=== PATIENT | female | born 1940 | race Caucasian/White ===

== ENCOUNTER 2021-06-21 01:45 | Inpatient (IN) | payer MEDICARE, MEDICAID ==
[2021-06-21 02:56] LABS: #Eosinphils 0.1 thou/uL (0.0-0.7); #Lymphocytes 0.8 thou/uL (1.20-3.40); #Monocytes 0.4 thou/uL (0.11-0.59); #Neutrophils 15.3 thou/uL (1.40-6.50); %Eosinophils 0.5 % (0.0-10.0); %Monocytes 2.1 % (0.0-10.0); %Neutrophils 92.4 % (42.0-75.0); Hemoglobin 17.2 g/dL (12.0-16.0); Mean Corpuscular HGB CONC 34.1 g/dL (32.0-36.0); Mean Corpuscular Hemoglobin 32.4 pg (27.0-31.0); Mean Corpuscular Volume 95.1 fL (78.0-98.0); Mean Platelet Volume 7.4 fL (7.4-10.4); Platelet Count 352 thou/uL (130-400); RBC Distribution Width 12.4 % (11.5-14.5); Red Blood Cell (RBC) Count 5.29 mill/uL (4.20-5.40); White Blood Cell (WBC) Count 16.5 thou/uL (4.8-10.8)
[2021-06-21 03:26] LABS: ALT (SGPT) 10 U/L (8-55); AST (SGOT) 17 U/L (5-34); Acetaminophen Less than 6.0 mcg/mL (10.0-30.0); Albumin 4.3 g/dL (3.4-4.8); Alcohol Less than 10 mg/dL (Less than 10); Alkaline Phosphatase 87 U/L (40-110); Anion Gap 17 mmol/L (10-20); BUN (Urea Nitrogen) 18 mg/dL (9.8-20.1); Bilirubin, Total 1.3 mg/dL (0.2-1.2); Calc. Creatinine Clearance 0 mL/min (70-130); Calcium 10.4 mg/dL (7.8-10.44); Carbon Dioxide 18 mmol/L (23-31); Chloride 104 mmol/L (98-107); Globulin 3.7 g/dL (2.4-3.5); Glucose 217 mg/dL (83-110); Magnesium 1.7 mg/dL (1.6-2.6); Potassium 3.8 mmol/L (3.5-5.1); Salicylate Less than 8.0 mg/dL (15.0-30.0); Sodium 135 mmol/L (136-145)
[2021-06-21 03:44] LABS: Bilirubin Negative (Negative); Blood, Urine 1+ (Negative); Clarity Turbid (Clear); Glucose, Urine (Dipstick) 100 mg/dL (Negative); Ketone, Urine Trace mg/dL (Negative); Leukocyte 25 Leu/uL (Negative); Nitrite Negative (Negative); Protein, Urine (Dipstick) 300 mg/dL (Neg-Trace); RBC/HPF 0-3 HPF (0-3); Specific Gravity, Urine 1.018 (1.002-1.036); Squamous Epithelial 0-3 HPF (0-3); Urobilinogen Normal mg/dL (Less than 2); WBC/HPF 21-50 HPF (0-3)
[2021-06-21 03:48] LABS: Amphetamine Not Detected (NotDetected); Barbiturates Screen Not Detected (NotDetected); Benzodiazepine Screen Not Detected (NotDetected); Cocaine Metabolite Screen Not Detected (NotDetected); Methadone Not Detected (NotDetected); Methamphetamine Not Detected (NotDetected); Opiate Screen Not Detected (NotDetected); Oxycodone Screen Not Detected (NotDetected); Phencyclidine (PCP) Not Detected (NotDetected); THC/Cannabinoid Screen Detected (NotDetected); Tricyclic Screen Not Detected (NotDetected)
[2021-06-21 03:53] LABS: Bacteria/HPF 4+ HPF (None Seen)
[2021-06-21] MEDS ORDERED: Magnesium 2 GM/50 ML BAG (IN WATER) ONE (05:08)
[2021-06-21] MEDS ORDERED: cefTRIAXone\\ROCEPHIN 2 GM VIAL ONE (05:16)
[2021-06-21] MEDS ORDERED: Enoxaparin Sodium 60 MG/0.6 ML SYRINGE ONE (05:46)
[2021-06-21 05:59] LABS: Lactic Acid 2.8 mmol/L (0.5-2.2)
[2021-06-21] MEDS ORDERED: Sodium Chloride 0.9% 1,000 ML IV SCH (06:15)
[2021-06-21] MEDS ORDERED: Lactated Ringer's 1,000 ML IV SCH (07:30)
[2021-06-21 07:31] VITALS: BMI 19.5
[2021-06-21] MEDS ORDERED: Diltiazem 125 MG in Sodium Chloride 0.9% 100 ML IVPB SCH (07:45)
[2021-06-21 08:06] LABS: Hemoglobin A1c 5.1 % (4.0-6.0)
[2021-06-21 08:46] LABS: Lactic Acid 1.7 mmol/L (0.5-2.2)
[2021-06-21] MEDS: Sodium Chloride 0.9% 1,000 ML IV SCH ×2 (08:49→16:58)
[2021-06-21] MEDS: Ondansetron PF 4 MG/2 ML Vial IVP PRN (08:49)
[2021-06-21] MEDS ORDERED: Aspirin 81 mg Enteric Coated Tablet PO SCH (12:45)
[2021-06-21] MEDS ORDERED: Digoxin 0.5 MG/2 ML AMP SLOW IVP SCH ×2 (13:15→13:30)
[2021-06-21] MEDS ORDERED: Aspirin 325 mg Enteric Coated Tablet PO SCH (13:30)
[2021-06-21] MEDS ORDERED: Aspirin Chewable 81 MG TAB PO SCH (13:30)
[2021-06-21 15:19] LABS: Creatinine, Urine 27.03 mg/dL (47-110)
[2021-06-21] MEDS: Metoprolol Tartrate 25 MG TAB PO SCH (20:44)
[2021-06-21] MEDS: Magnesium Oxide 400 MG TAB PO SCH (20:44)
[2021-06-21] MEDS: Melatonin 3 MG TAB PO SCH (20:44)
[2021-06-21] MEDS: Atorvastatin Calcium 40 MG TAB PO SCH (20:44)
[2021-06-21 21:49] LABS: SARS-CoV-2 PCR by NAA Not Detected (NotDetected)
[2021-06-22] MEDS: Sodium Chloride 0.9% 1,000 ML IV SCH ×3 (00:31→15:40)
[2021-06-22] MEDS: cefTRIAXone\\ROCEPHIN 1 GM in Sodium Chloride 0.9% 100 ML IVPB SCH (04:45)
[2021-06-22] MEDS ORDERED: cefTRIAXone\\ROCEPHIN 2 GM in Sodium Chloride 0.9% 100 ML IVPB SCH (06:00)
[2021-06-22 07:04] LABS: #Eosinphils 0.3 thou/uL (0.0-0.7); #Lymphocytes 1.4 thou/uL (1.20-3.40); #Monocytes 0.4 thou/uL (0.11-0.59); #Neutrophils 4.8 thou/uL (1.40-6.50); %Basophils 0.3 % (0.0-1.0); %Eosinophils 4.4 % (0.0-10.0); %Lymphocytes 20.3 % (21.0-51.0); %Monocytes 5.4 % (0.0-10.0); %Neutrophils 69.6 % (42.0-75.0); Hemoglobin 13.2 g/dL (12.0-16.0); Mean Corpuscular HGB CONC 33.1 g/dL (32.0-36.0); Mean Corpuscular Hemoglobin 31.8 pg (27.0-31.0); Mean Corpuscular Volume 96.1 fL (78.0-98.0); Mean Platelet Volume 7.3 fL (7.4-10.4); Platelet Count 251 thou/uL (130-400); RBC Distribution Width 12.5 % (11.5-14.5); Red Blood Cell (RBC) Count 4.15 mill/uL (4.20-5.40); White Blood Cell (WBC) Count 6.9 thou/uL (4.8-10.8)
[2021-06-22 07:32] LABS: Albumin 3.2 g/dL (3.4-4.8); Anion Gap 12 mmol/L (10-20); BUN (Urea Nitrogen) 17 mg/dL (9.8-20.1); Bilirubin, Total 0.9 mg/dL (0.2-1.2); Calc. Creatinine Clearance 31 mL/min (70-130); Carbon Dioxide 21 mmol/L (23-31); Chloride 112 mmol/L (98-107); Cholesterol 173 mg/dl (< 200 Desired); Globulin 2.7 g/dL (2.4-3.5); Glucose 87 mg/dL (83-110); Potassium 3.7 mmol/L (3.5-5.1); Protein, Total 5.9 g/dL (5.8-8.1); Sodium 141 mmol/L (136-145)
[2021-06-22 07:33] LABS: ALT (SGPT) Less than 7 U/L (8-55); AST (SGOT) 10 U/L (5-34); Alkaline Phosphatase 59 U/L (40-110); Cardiac Risk 5.2 (Less than 4.5); HDL Cholesterol 33 mg/dL (>60 Neg Risk); LDL Cholesterol, Calculated 118 mg/dL; Magnesium 1.9 mg/dL (1.6-2.6); Triglycerides 110 mg/dL (Less than 150)
[2021-06-22] MEDS ORDERED: Aspirin 81 mg Enteric Coated Tablet PO SCH (09:00)
[2021-06-22] MEDS ORDERED: Aspirin 325 mg Enteric Coated Tablet PO SCH (09:00)
[2021-06-22] MEDS: Rivaroxaban 15 MG TAB PO SCH (09:16)
[2021-06-22] MEDS: Magnesium Oxide 400 MG TAB PO SCH (09:16)
[2021-06-22] MEDS: Metoprolol Tartrate 25 MG TAB PO SCH ×2 (10:01→18:35)
[2021-06-22] MEDS ORDERED: FLU VACC QS2021-22(65YR UP)/PF 240 MCG/0.7 ML SYRINGE IM ONE (11:15)
[2021-06-22] MEDS: Vancomycin HCl 750 MG in Sodium Chloride 0.9% 250 ML 250 ML IVPB SCH (12:14)
[2021-06-22] MEDS ORDERED: hydrALAZINE 20 MG/ML VIAL SLOW IVP PRN (16:33)
[2021-06-22] MEDS: Ondansetron PF 4 MG/2 ML Vial IVP PRN (17:50)
[2021-06-22] MEDS ORDERED: Amlodipine 5 MG TAB PO SCH (18:15)
[2021-06-22] MEDS ORDERED: hydrOXYzine 25 MG TAB PO SCH (19:15)
[2021-06-22] MEDS: Melatonin 3 MG TAB PO SCH (20:43)
[2021-06-22] MEDS: Floranex 1 GM Packet PO SCH (20:43)
[2021-06-22] MEDS: Atorvastatin Calcium 40 MG TAB PO SCH (20:43)
[2021-06-22] MEDS ORDERED: Acetaminophen 325 MG TAB PO PRN (21:33)
[2021-06-23 04:59] LABS: #Basophils 0.1 thou/uL (0.0-0.2); #Eosinphils 0.3 thou/uL (0.0-0.7); #Lymphocytes 1.2 thou/uL (1.20-3.40); #Monocytes 0.5 thou/uL (0.11-0.59); #Neutrophils 5.4 thou/uL (1.40-6.50); %Basophils 0.8 % (0.0-1.0); %Eosinophils 3.8 % (0.0-10.0); %Lymphocytes 16.4 % (21.0-51.0); %Monocytes 6.6 % (0.0-10.0); %Neutrophils 72.4 % (42.0-75.0); Mean Corpuscular HGB CONC 33.4 g/dL (32.0-36.0); Mean Corpuscular Hemoglobin 31.4 pg (27.0-31.0); Mean Platelet Volume 7.5 fL (7.4-10.4); Platelet Count 293 thou/uL (130-400); RBC Distribution Width 12.3 % (11.5-14.5); Red Blood Cell (RBC) Count 4.78 mill/uL (4.20-5.40); White Blood Cell (WBC) Count 7.5 thou/uL (4.8-10.8)
[2021-06-23 05:24] LABS: ALT (SGPT) Less than 7 U/L (8-55); AST (SGOT) 11 U/L (5-34); Albumin 3.6 g/dL (3.4-4.8); Alkaline Phosphatase 70 U/L (40-110); Anion Gap 14 mmol/L (10-20); BUN (Urea Nitrogen) 18 mg/dL (9.8-20.1); Bilirubin, Total 1.1 mg/dL (0.2-1.2); Calc. Creatinine Clearance 32 mL/min (70-130); Calcium 9.6 mg/dL (7.8-10.44); Carbon Dioxide 20 mmol/L (23-31); Chloride 108 mmol/L (98-107); Globulin 3.3 g/dL (2.4-3.5); Glucose 87 mg/dL (83-110); Potassium 3.6 mmol/L (3.5-5.1); Protein, Total 6.9 g/dL (5.8-8.1); Sodium 138 mmol/L (136-145)
[2021-06-23] MEDS: cefTRIAXone\\ROCEPHIN 1 GM in Sodium Chloride 0.9% 100 ML IVPB SCH (05:42)
[2021-06-23] MEDS: Amlodipine 5 MG TAB PO SCH (09:10)
[2021-06-23] MEDS: Rivaroxaban 15 MG TAB PO SCH (09:10)
[2021-06-23] MEDS: Metoprolol Tartrate 25 MG TAB PO SCH ×2 (09:10→19:47)
[2021-06-23] MEDS: Vancomycin HCl 750 MG in Sodium Chloride 0.9% 250 ML 250 ML IVPB SCH (14:53)
[2021-06-23] MEDS ORDERED: Labetalol HCl 100 MG/20 ML VIAL SLOW IVP PRN (16:52)
[2021-06-23] MEDS: Melatonin 3 MG TAB PO SCH (19:47)
[2021-06-23] MEDS: Atorvastatin Calcium 40 MG TAB PO SCH (19:47)
[2021-06-23] MEDS: Floranex 1 GM Packet PO SCH (19:49)
[2021-06-24 04:57] LABS: #Basophils 0.1 thou/uL (0.0-0.2); #Eosinphils 0.5 thou/uL (0.0-0.7); #Lymphocytes 1.5 thou/uL (1.20-3.40); #Monocytes 0.5 thou/uL (0.11-0.59); #Neutrophils 4.7 thou/uL (1.40-6.50); %Eosinophils 6.4 % (0.0-10.0); %Lymphocytes 21.1 % (21.0-51.0); %Monocytes 7.4 % (0.0-10.0); %Neutrophils 64.1 % (42.0-75.0); Hemoglobin 14.9 g/dL (12.0-16.0); Mean Corpuscular HGB CONC 32.9 g/dL (32.0-36.0); Mean Corpuscular Hemoglobin 30.8 pg (27.0-31.0); Mean Corpuscular Volume 93.6 fL (78.0-98.0); Mean Platelet Volume 7.4 fL (7.4-10.4); Platelet Count 304 thou/uL (130-400); RBC Distribution Width 12.3 % (11.5-14.5); Red Blood Cell (RBC) Count 4.84 mill/uL (4.20-5.40); White Blood Cell (WBC) Count 7.3 thou/uL (4.8-10.8)
[2021-06-24 05:20] LABS: ALT (SGPT) 7 U/L (8-55); AST (SGOT) 12 U/L (5-34); Albumin 3.7 g/dL (3.4-4.8); Alkaline Phosphatase 68 U/L (40-110); Anion Gap 12 mmol/L (10-20); BUN (Urea Nitrogen) 26 mg/dL (9.8-20.1); Bilirubin, Total 1.1 mg/dL (0.2-1.2); Calc. Creatinine Clearance 28 mL/min (70-130); Calcium 9.5 mg/dL (7.8-10.44); Carbon Dioxide 22 mmol/L (23-31); Chloride 107 mmol/L (98-107); Globulin 3.2 g/dL (2.4-3.5); Glucose 96 mg/dL (83-110); Potassium 3.3 mmol/L (3.5-5.1); Protein, Total 6.9 g/dL (5.8-8.1); Sodium 138 mmol/L (136-145)
[2021-06-24] MEDS: Amlodipine 5 MG TAB PO SCH (08:31)
[2021-06-24] MEDS: Rivaroxaban 15 MG TAB PO SCH (08:31)
[2021-06-24] MEDS: Metoprolol Tartrate 25 MG TAB PO SCH ×2 (08:39→20:37)
[2021-06-24] MEDS ORDERED: Potassium Chloride 20 MEQ TAB PO SCH (09:15)
[2021-06-24 11:41] LABS: Vancomycin, Trough 8.5 ug/mL
[2021-06-24] MEDS ORDERED: Vancomycin HCl 750 MG in Sodium Chloride 0.9% 250 ML 250 ML IVPB SCH (12:00)
[2021-06-24] MEDS ORDERED: Aspirin 81 mg Enteric Coated Tablet PO SCH (16:15)
[2021-06-24] MEDS: Floranex 1 GM Packet PO SCH (20:36)
[2021-06-24] MEDS: Atorvastatin Calcium 40 MG TAB PO SCH (20:36)
[2021-06-24] MEDS: Melatonin 3 MG TAB PO SCH (20:37)
[2021-06-25 05:24] LABS: #Basophils 0.1 thou/uL (0.0-0.2); #Eosinphils 0.6 thou/uL (0.0-0.7); #Lymphocytes 1.7 thou/uL (1.20-3.40); #Monocytes 0.5 thou/uL (0.11-0.59); #Neutrophils 4.9 thou/uL (1.40-6.50); %Basophils 1.3 % (0.0-1.0); %Eosinophils 7.2 % (0.0-10.0); %Lymphocytes 22.2 % (21.0-51.0); %Monocytes 5.9 % (0.0-10.0); %Neutrophils 63.4 % (42.0-75.0); Hemoglobin 16.4 g/dL (12.0-16.0); Mean Corpuscular HGB CONC 34.4 g/dL (32.0-36.0); Mean Corpuscular Hemoglobin 32.4 pg (27.0-31.0); Mean Corpuscular Volume 94.3 fL (78.0-98.0); Mean Platelet Volume 7.2 fL (7.4-10.4); Platelet Count 302 thou/uL (130-400); RBC Distribution Width 12.6 % (11.5-14.5); Red Blood Cell (RBC) Count 5.05 mill/uL (4.20-5.40); White Blood Cell (WBC) Count 7.7 thou/uL (4.8-10.8)
[2021-06-25 05:51] LABS: ALT (SGPT) 9 U/L (8-55); AST (SGOT) 13 U/L (5-34); Albumin 3.9 g/dL (3.4-4.8); Alkaline Phosphatase 73 U/L (40-110); Anion Gap 11 mmol/L (10-20); BUN (Urea Nitrogen) 26 mg/dL (9.8-20.1); Bilirubin, Total 1.1 mg/dL (0.2-1.2); Calc. Creatinine Clearance 28 mL/min (70-130); Calcium 9.9 mg/dL (7.8-10.44); Carbon Dioxide 24 mmol/L (23-31); Chloride 108 mmol/L (98-107); Globulin 3.3 g/dL (2.4-3.5); Glucose 96 mg/dL (83-110); Potassium 3.8 mmol/L (3.5-5.1); Protein, Total 7.2 g/dL (5.8-8.1); Sodium 139 mmol/L (136-145)
[2021-06-25] MEDS: Metoprolol Tartrate 25 MG TAB PO SCH (08:39)
[2021-06-25] MEDS: Amlodipine 5 MG TAB PO SCH (08:39)
[2021-06-25] MEDS: Rivaroxaban 15 MG TAB PO SCH (08:39)
[2021-06-25] MEDS ORDERED: Aspirin 81 mg Enteric Coated Tablet PO SCH (09:00)
[2021-06-25 12:09] VITALS: BP 137/88; TEMP 97.4
== END 2021-06-25 17:15 | DRG 64 ==
LOC: ERS 01:45 → NEURO 05:57
PROVIDERS: ADMIT Family Medicine; ATTEND Family Medicine
DX: I63.332 Cerebral infarction due to thrombosis of left posterior cerebral artery (principal); R65.20 Severe sepsis without septic shock; G93.41 Metabolic encephalopathy; A41.51 Sepsis due to Escherichia coli [E. coli]; N17.9 Acute kidney failure, unspecified; I69.354 Hemiplegia and hemiparesis following cerebral infarction affecting left non-dominant side; Z20.822 Contact with and (suspected) exposure to COVID-19; R29.716 NIHSS score 16; N30.90 Cystitis, unspecified without hematuria; M10.062 Idiopathic gout, left knee; E86.0 Dehydration; E87.6 Hypokalemia; R73.9 Hyperglycemia, unspecified; F41.9 Anxiety disorder, unspecified; H91.90 Unspecified hearing loss, unspecified ear; F12.10 Cannabis abuse, uncomplicated; R47.01 Aphasia; E78.00 Pure hypercholesterolemia, unspecified; Z86.718 Personal history of other venous thrombosis and embolism; Z91.14 Patient's other noncompliance with medication regimen; I25.2 Old myocardial infarction; Z74.01 Bed confinement status; Z79.899 Other long term (current) drug therapy
CPT/HCPCS: 36415; 51701; 70450; 70544; 70549; 70551; 71045; 80053; 80061; 80202; 80306; 80307; 81003; 81015; 82570; 83036; 83605; 83735; 84145; 84300; 84443; 84484; 85025; 87040; 87077; 87086; 87149; 87186; 93005; 93010; 93306; 94760; 95712; 95819; 95957; 96365; 96367; 96372; 96375; J0360; J0696; J1160; J1650; J2405; J3370; J3475; J3490; J7050; U0003; U0005

== ENCOUNTER 2022-03-03 15:31 | Inpatient (IN) | payer MEDICARE, MEDICAID ==
[2022-03-03 16:28] VITALS: BMI 21.6
[2022-03-03] MEDS ORDERED: FLU VACC QS2022-23(65YR UP)/PF 240 MCG/0.7 ML SYRINGE IM ONE (16:45)
[2022-03-03] MEDS ORDERED: Acetaminophen 325 MG TAB PO PRN (18:04)
[2022-03-03] MEDS ORDERED: Potassium Chloride 20 MEQ TAB PO SCH (18:15)
[2022-03-03] MEDS ORDERED: Rivaroxaban 15 MG TAB PO SCH (18:30)
[2022-03-03] MEDS: cefTRIAXone\\ROCEPHIN 1 GM in Sodium Chloride 0.9% 100 ML IVPB SCH (19:48)
[2022-03-03] MEDS: Atorvastatin Calcium 40 MG TAB PO SCH (19:48)
[2022-03-04 04:42] LABS: #Eosinphils 0.4 thou/uL (0.0-0.7); #Lymphocytes 1.3 thou/uL (1.20-3.40); #Monocytes 0.6 thou/uL (0.11-0.59); #Neutrophils 5.6 thou/uL (1.40-6.50); %Basophils 0.5 % (0.0-1.0); %Eosinophils 5.4 % (0.0-10.0); %Lymphocytes 16.1 % (21.0-51.0); %Neutrophils 70.1 % (42.0-75.0); Hemoglobin 15.7 g/dL (12.0-16.0); Mean Corpuscular HGB CONC 33.3 g/dL (32.0-36.0); Mean Corpuscular Hemoglobin 30.9 pg (27.0-31.0); Mean Corpuscular Volume 92.8 fl (78.0-98.0); Mean Platelet Volume 7.4 fL (7.4-10.4); Platelet Count 300 thou/uL (130-400); RBC Distribution Width 12.1 % (11.5-14.5); Red Blood Cell (RBC) Count 5.09 mill/uL (4.20-5.40)
[2022-03-04 04:50] LABS: Anion Gap 11 mmol/L (10-20); BUN (Urea Nitrogen) 18 mg/dL (9.8-20.1); Calc. Creatinine Clearance 39 mL/min (70-130); Calcium 9.9 mg/dL (7.8-10.44); Carbon Dioxide 22 mmol/L (23-31); Chloride 108 mmol/L (98-107); Cholesterol 202 mg/dl (< 200 Desired); Estimated GFR 48; Glucose 94 mg/dL (83-110); HDL Cholesterol 29 mg/dL (>60 Neg Risk); LDL Cholesterol, Calculated 146 mg/dL; Magnesium 1.7 mg/dL (1.6-2.6); Phosphorus 2.5 mg/dL (2.3-4.7); Potassium 4.4 mmol/L (3.5-5.1); Sodium 137 mmol/L (136-145); Triglycerides 137 mg/dL (Less than 150)
[2022-03-04] MEDS: Amlodipine 5 MG TAB PO SCH (09:43)
[2022-03-04] MEDS: Aspirin 81 mg Enteric Coated Tablet PO SCH (09:43)
[2022-03-04] MEDS: Rivaroxaban 15 MG TAB PO SCH (17:29)
[2022-03-04] MEDS: cefTRIAXone\\ROCEPHIN 1 GM in Sodium Chloride 0.9% 100 ML IVPB SCH (18:42)
[2022-03-04] MEDS: Atorvastatin Calcium 40 MG TAB PO SCH (20:56)
[2022-03-04] MEDS ORDERED: Atorvastatin Calcium 40 MG TAB PO SCH (21:00)
[2022-03-05] MEDS ORDERED: Sodium Chloride 0.9% 1,000 ML IV SCH (08:30)
[2022-03-05 08:45] LABS: Actual Bicarbonate (HCO3a) 16.9 mEq/L (22-28); Calcium, Ionized (arterial) 1.25 mmol/L (1.12-1.30); Carboxyhemoglobin (COHb) 0.7 gm% (0.0-3.0); Hemoglobin (Hb) 15.7 g/dL (12.0-16.0); O2 Tension (PaO2), arterial 98.2 mmHg (> 70.0); Potassium - ABG Lab 4.14 mmol/L (3.70-5.30); pH, Arterial 7.49 (7.35-7.45)
[2022-03-05 09:03] LABS: CO2 Tension 22.5 mmHg (35.0-45.0); Puncture Site LRA
[2022-03-05] MEDS: Amlodipine 5 MG TAB PO SCH (09:03)
[2022-03-05] MEDS: Aspirin 81 mg Enteric Coated Tablet PO SCH (09:03)
[2022-03-05 09:04] LABS: ALV-art Gradient 23.405 mmHg (0-20)
[2022-03-05] MEDS: Rivaroxaban 15 MG TAB PO SCH (16:55)
[2022-03-05] MEDS: cefTRIAXone\\ROCEPHIN 1 GM in Sodium Chloride 0.9% 100 ML IVPB SCH (16:55)
[2022-03-05] MEDS: Atorvastatin Calcium 40 MG TAB PO SCH (20:30)
[2022-03-06] MEDS: Aspirin 81 mg Enteric Coated Tablet PO SCH (10:07)
[2022-03-06] MEDS: Rivaroxaban 15 MG TAB PO SCH (17:13)
[2022-03-06] MEDS: Nitrofurantoin Monohyd/M-Cryst 100 MG CAP PO SCH (20:42)
[2022-03-06] MEDS: Atorvastatin Calcium 40 MG TAB PO SCH (20:42)
[2022-03-07] MEDS: Aspirin 81 mg Enteric Coated Tablet PO SCH (08:44)
[2022-03-07] MEDS: Nitrofurantoin Monohyd/M-Cryst 100 MG CAP PO SCH ×2 (08:44→21:03)
[2022-03-07] MEDS ORDERED: Ondansetron ODT 4 MG TAB PO PRN (14:17)
[2022-03-07] MEDS ORDERED: Ondansetron PF 4 MG/2 ML Vial IVP PRN (14:18)
[2022-03-07] MEDS: Atorvastatin Calcium 40 MG TAB PO SCH (21:03)
[2022-03-08 04:52] LABS: Hemoglobin 15.3 g/dL (12.0-16.0); Mean Corpuscular HGB CONC 33.1 g/dL (32.0-36.0); Mean Corpuscular Hemoglobin 30.5 pg (27.0-31.0); Mean Corpuscular Volume 92.2 fl (78.0-98.0); Mean Platelet Volume 7.6 fL (7.4-10.4); Platelet Count 388 thou/uL (130-400); RBC Distribution Width 12.1 % (11.5-14.5); Red Blood Cell (RBC) Count 5.03 mill/uL (4.20-5.40); White Blood Cell (WBC) Count 12.2 thou/uL (4.8-10.8)
[2022-03-08] MEDS: Aspirin 81 mg Enteric Coated Tablet PO SCH (09:02)
[2022-03-08] MEDS: Nitrofurantoin Monohyd/M-Cryst 100 MG CAP PO SCH (09:02)
[2022-03-09 02:37] VITALS: BP 131/76; TEMP 98
== END 2022-03-08 16:26 | DRG 690 ==
LOC: 2NO 16:08
PROVIDERS: ADMIT Internal Medicine; ATTEND Internal Medicine
DX: N39.0 Urinary tract infection, site not specified (principal); I48.21 Permanent atrial fibrillation; E44.0 Moderate protein-calorie malnutrition; I69.354 Hemiplegia and hemiparesis following cerebral infarction affecting left non-dominant side; Z66 Do not resuscitate; Z20.822 Contact with and (suspected) exposure to COVID-19; I07.1 Rheumatic tricuspid insufficiency; B96.89 Other specified bacterial agents as the cause of diseases classified elsewhere; L98.8 Other specified disorders of the skin and subcutaneous tissue; F12.10 Cannabis abuse, uncomplicated; N18.32 Chronic kidney disease, stage 3b; Z28.21 Immunization not carried out because of patient refusal; Z68.21 Body mass index [BMI] 21.0-21.9, adult; Z79.899 Other long term (current) drug therapy; Z79.82 Long term (current) use of aspirin; Z79.01 Long term (current) use of anticoagulants; Z82.0 Family history of epilepsy and other diseases of the nervous system
CPT/HCPCS: 36415; 36600; 80048; 80061; 82805; 83735; 84100; 84443; 85025; 85027; 87077; 87086; 87186; 93306; 97139; J0696; J2405; J3490; Q0162; U0003; U0005

== ENCOUNTER 2022-12-29 13:54 | Outpatient (CLI) | payer MEDICARE, OTHER ==
[2022-12-29 16:03] LABS: Anion Gap 17 mmol/L (10-20); BUN (Urea Nitrogen) 35 mg/dL (9.8-20.1); Calc. Creatinine Clearance 0 mL/min (70-130); Calcium 9.6 mg/dL (7.8-10.44); Carbon Dioxide 18 mmol/L (23-31); Chloride 110 mmol/L (98-107); Estimated GFR 38; Glucose 122 mg/dL (83-110); Sodium 140 mmol/L (136-145)
== END 2022-12-29 13:55 | disposition home or self-care (01) ==
LOC: LABBT 13:54
PROVIDERS: ATTEND Surgery
DX: Z01.818 Encounter for other preprocedural examination (principal); C44.609 Unspecified malignant neoplasm of skin of left upper limb, including shoulder
CPT/HCPCS: 80048; 93005; 93010

== ENCOUNTER 2023-01-05 06:40 | Day surgery (SDC) | payer OTHER ==
[2022-12-29 14:25] VITALS: BMI 22.6
[2023-01-05] MEDS ORDERED: EPINEPHrine 1 MG/ML AMP ONE (09:55)
[2023-01-05] MEDS ORDERED: Bupivacaine 0.25% HCL 30 ML VIAL ONE (09:55)
[2023-01-05] MEDS ORDERED: Lidocaine 2% PF 5 ML VIAL ONE (09:56)
[2023-01-05] MEDS ORDERED: fentaNYL PF 100 MCG/2 ML SYRINGE ONE (11:06)
[2023-01-05] MEDS ORDERED: CEFAZOLIN 2 GM VIAL ONE (11:12)
[2023-01-05] MEDS ORDERED: Sodium Chloride 0.9% 100 ML ONE (11:12)
[2023-01-05] MEDS ORDERED: Labetalol HCl 100 MG/20 ML VIAL ONE (11:38)
== END 2023-01-05 13:21 | disposition home or self-care (01) ==
LOC: SDC 06:40
PROVIDERS: ATTEND Surgery
PROC: 0HBCXZZ Excision of Left Upper Arm Skin, External Approach (ICD-10-PCS; principal; 2023-01-05)
DX: L98.8 Other specified disorders of the skin and subcutaneous tissue (principal)
CPT/HCPCS: 88305; J0171; J2001; J3490; S0020

== ENCOUNTER 2023-06-12 11:57 | Observation (INO) | payer OTHER ==
[2023-06-12 13:08] LABS: #Basophils 0.1 thou/uL (0.0-0.2); #Eosinphils 0.5 thou/uL (0.0-0.7); #Monocytes 0.6 thou/uL (0.11-0.59); #Neutrophils 4.9 thou/uL (1.40-6.50); %Basophils 1.1 % (0.0-1.0); %Lymphocytes 13.6 % (21.0-51.0); %Monocytes 7.9 % (0.0-10.0); %Neutrophils 70.1 % (42.0-75.0); Hematocrit 46.6 % (36.0-47.0); Hemoglobin 15.1 g/dL (12.0-16.0); Mean Corpuscular HGB CONC 32.4 g/dL (32.0-36.0); Mean Corpuscular Volume 92.6 fl (78.0-98.0); Mean Platelet Volume 10.3 fL (7.4-10.4); Platelet Count 296 10x3/uL (130-400); RBC Distribution Width 13.6 % (11.5-14.5); Red Blood Cell (RBC) Count 5.03 mill/uL (4.20-5.40)
[2023-06-12 13:33] LABS: Troponin I Less than 0.010 ng/mL (< 0.028)
[2023-06-12 13:39] LABS: ALT (SGPT) 19 U/L (8-55); AST (SGOT) 20 U/L (5-34); Albumin 3.8 g/dL (3.4-4.8); Alkaline Phosphatase 107 U/L (40-110); Anion Gap 13 mmol/L (10-20); BUN (Urea Nitrogen) 29 mg/dL (9.8-20.1); Calc. Creatinine Clearance 0 mL/min (70-130); Calcium 9.5 mg/dL (7.8-10.44); Carbon Dioxide 19 mmol/L (23-31); Chloride 110 mmol/L (98-107); Estimated GFR 46; Globulin 3.3 g/dL (2.4-3.5); Glucose 108 mg/dL (83-110); Lipase 37 U/L (8-78); Potassium 4.4 mmol/L (3.5-5.1); Protein, Total 7.1 g/dL (5.8-8.1); Sodium 138 mmol/L (136-145)
[2023-06-12] MEDS ORDERED: Furosemide 40 MG (4 mL) VIAL ONE (14:38)
[2023-06-12] MEDS ORDERED: Aspirin Chewable 81 MG TAB ONE (14:38)
[2023-06-12] MEDS ORDERED: HYDROcodone/Acetaminophen 5/325 mg Tablet PO PRN (15:07)
[2023-06-12] MEDS ORDERED: Ondansetron ODT 4 MG TAB PO PRN (15:07)
[2023-06-12] MEDS ORDERED: Guaifenesin DM 100-10/5 ML UDCUP PO PRN (15:07)
[2023-06-12] MEDS ORDERED: Senokot S 8.6-50 MG TAB PO PRN (15:07)
[2023-06-12 17:13] LABS: Troponin I Less than 0.010 ng/mL (< 0.028)
[2023-06-12 18:21] VITALS: BMI 22.8
[2023-06-12] MEDS: Acetaminophen 325 MG TAB PO PRN (20:06)
[2023-06-12] MEDS: Famotidine 20 MG TAB PO SCH (20:07)
[2023-06-12] MEDS: Atorvastatin Calcium 40 MG TAB PO SCH (20:07)
[2023-06-12 20:18] LABS: Troponin I Less than 0.010 ng/mL (< 0.028)
[2023-06-13 05:24] LABS: #Basophils 0.1 thou/uL (0.0-0.2); #Eosinphils 0.5 thou/uL (0.0-0.7); #Monocytes 0.7 thou/uL (0.11-0.59); #Neutrophils 4.5 thou/uL (1.40-6.50); %Basophils 1.3 % (0.0-1.0); %Eosinophils 7.1 % (0.0-10.0); %Lymphocytes 18.6 % (21.0-51.0); %Monocytes 9.7 % (0.0-10.0); Hemoglobin 15.7 g/dL (12.0-16.0); Mean Corpuscular Hemoglobin 29.5 pg (27.0-31.0); Mean Corpuscular Volume 91.9 fl (78.0-98.0); Mean Platelet Volume 10.6 fL (7.4-10.4); Platelet Count 304 10x3/uL (130-400); RBC Distribution Width 13.7 % (11.5-14.5); Red Blood Cell (RBC) Count 5.33 mill/uL (4.20-5.40); White Blood Cell (WBC) Count 7.2 10x3/uL (4.8-10.8)
[2023-06-13 05:51] LABS: Anion Gap 14 mmol/L (10-20); BUN (Urea Nitrogen) 32 mg/dL (9.8-20.1); Calc. Creatinine Clearance 31 mL/min (70-130); Calcium 9.3 mg/dL (7.8-10.44); Carbon Dioxide 23 mmol/L (23-31); Chloride 107 mmol/L (98-107); Estimated GFR 35; Glucose 96 mg/dL (83-110); Potassium 3.9 mmol/L (3.5-5.1); Sodium 140 mmol/L (136-145)
[2023-06-13 08:01] VITALS: BP 118/58; TEMP 97.8
[2023-06-13] MEDS: Aspirin Chewable 81 MG TAB PO SCH (08:24)
[2023-06-13] MEDS: Rivaroxaban 15 MG TAB PO SCH (08:25)
[2023-06-14] MEDS ORDERED: Famotidine 20 MG TAB PO SCH (09:00)
== END 2023-06-13 20:30 ==
LOC: ERS 11:57 → 2SW 14:45
PROVIDERS: ADMIT Internal Medicine; ATTEND Family Medicine
DX: I48.0 Paroxysmal atrial fibrillation (principal); I13.0 Hypertensive heart and chronic kidney disease with heart failure and stage 1 through stage 4 chronic kidney disease, or unspecified chronic kidney disease; I50.9 Heart failure, unspecified; N18.30 Chronic kidney disease, stage 3 unspecified; F03.90 Unspecified dementia, unspecified severity, without behavioral disturbance, psychotic disturbance, mood disturbance, and anxiety; N17.9 Acute kidney failure, unspecified; I69.354 Hemiplegia and hemiparesis following cerebral infarction affecting left non-dominant side; Z79.82 Long term (current) use of aspirin; Z79.899 Other long term (current) drug therapy
CPT/HCPCS: 36415; 36416; 71045; 78451; 80048; 80053; 83690; 83880; 84484; 85025; 93005; 94760; 96374; A9502; G0378; J1940

== ENCOUNTER 2023-09-22 03:27 | Emergency (ER) | payer OTHER ==
[2023-09-22 04:33] LABS: Bacteria/HPF None Seen HPF (None Seen); Bilirubin Negative (Negative); Blood, Urine 1+ (Negative); CAUTI Indications for Culture Alt mental st,lethar; Clarity Clear (Clear); Glucose, Urine (Dipstick) Normal (Negative); Ketone, Urine Negative (Negative); Leukocyte 25 Leu/uL (Negative); Nitrite Negative (Negative); Protein, Urine (Dipstick) 100 mg/dL (Neg-Trace); RBC/HPF 0-3 HPF (0-3); Specific Gravity, Urine 1.022 (1.002-1.036); Squamous Epithelial 0-3 HPF (0-3); Urobilinogen Normal mg/dL (Less than 2)
[2023-09-22 04:36] LABS: Urine Culture Reflex Yes Yes
[2023-09-22 04:38] LABS: #Basophils 0.04 10x3/uL (0.0-0.2); %Basophils 0.5 % (0.0-1.0); %Eosinophils 1.5 % (0.0-10.0); %Lymphocytes 6.8 % (21.0-51.0); %Monocytes 7.6 % (0.0-10.0); %Neutrophils 83.1 % (42.0-75.0); Hematocrit 46.5 % (36.0-47.0); Hemoglobin 15.3 g/dL (12.0-16.0); Mean Corpuscular HGB CONC 32.9 g/dL (32.0-36.0); Mean Corpuscular Hemoglobin 30.3 pg (27.0-31.0); Mean Corpuscular Volume 92.1 fL (78.0-98.0); Mean Platelet Volume 10.3 fL (7.4-10.4); Platelet Count 304 10x3/uL (130-400); RBC Distribution Width 13.2 % (11.5-14.5); Red Blood Cell (RBC) Count 5.05 mill/uL (4.20-5.40)
[2023-09-22] MEDS ORDERED: Sodium Chloride 0.9% 100 ML ONE (04:49)
[2023-09-22] MEDS ORDERED: cefTRIAXone (ROCEPHIN) 1 GM VIAL ONE (04:49)
[2023-09-22 04:53] LABS: ALT (SGPT) 13 U/L (8-55); AST (SGOT) 18 U/L (5-34); Albumin 3.4 g/dL (3.4-4.8); Alkaline Phosphatase 111 U/L (40-110); Anion Gap 12 mmol/L (10-20); BUN (Urea Nitrogen) 24 mg/dL (9.8-20.1); Bilirubin, Total 1.1 mg/dL (0.2-1.2); Calc. Creatinine Clearance 0 mL/min (70-130); Calcium 9.3 mg/dL (7.8-10.44); Carbon Dioxide 18 mmol/L (23-31); Chloride 111 mmol/L (98-107); Estimated GFR 54; Globulin 3.7 g/dL (2.4-3.5); Glucose 120 mg/dL (83-110); Lipase 23 U/L (8-78); Protein, Total 7.1 g/dL (5.8-8.1); Sodium 137 mmol/L (136-145)
[2023-09-22 04:59] LABS: Troponin I 0.012 ng/mL (< 0.028)
[2023-09-22 07:53] LABS: Influenza A by NAA Not Detected (NotDetected); Influenza B by NAA Not Detected (NotDetected); SARS-CoV-2 NAA Rapid Test Not Detected (NotDetected)
== END 2023-09-22 10:44 ==
LOC: ERS 03:27
DX: E86.0 Dehydration (principal); N39.0 Urinary tract infection, site not specified; I48.91 Unspecified atrial fibrillation; I25.2 Old myocardial infarction; N18.9 Chronic kidney disease, unspecified; E78.00 Pure hypercholesterolemia, unspecified; F03.90 Unspecified dementia, unspecified severity, without behavioral disturbance, psychotic disturbance, mood disturbance, and anxiety; Z86.73 Personal history of transient ischemic attack (TIA), and cerebral infarction without residual deficits; Z79.82 Long term (current) use of aspirin; Z79.899 Other long term (current) drug therapy
CPT/HCPCS: 36415; 51701; 71045; 80053; 81001; 83690; 83880; 84484; 85025; 87077; 87086; 87186; 93005; 96361; 96365; J0696; J3490